=== PATIENT | female | born 2000 | race Caucasian/White ===

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

== ENCOUNTER 2019-04-01 16:14 | Emergency (ER) | payer BC, OTHER ==
[~2019-04-01 16:14] MED LIST changes: -LAMO150T2 PO; +LAMO150T4 PO; +ONDA8TAB9 PO; +RANI300T3 PO
--- NOTE | 2019-04-01 16:41 | PHYS DOC ---
Past History Past Medical History: Anxiety, Bipolar, Constipation, Depression, Gallstones, GERD, Other Past Surgical History: Cholecystectomy, Other Smoking: Quit Less Than 1 Year Alcohol Use: Occasionally Drug Use: None Adult General Chief Complaint Chief Complaint: FINGER INJURY HPI HPI patient is a 18-year-old female who works at [employer], and she states she was a work when she accidentally slammed the door of a display case on her hand, injuring her left third and fourth fingers. She denies any other injuries or painful areas, numbness or weakness. She is having pain with flexion and extension of the digits, range of motion is somewhat limited secondary to the pain. There are no other alleviating or exacerbating factors to her symptoms. She did take ibuprofen prior to arrival. Review of Systems Review of Systems : Denies [] Musculoskeletal: Denies back pain or joint pain, other than as noted in the history of present illness. [] Integument: Denies rash or skin lesions [] Neurologic: Denies focal weakness or sensory changes [] Allergies Allergies Allergies Coded Allergies Type Severity Reaction Last Updated Verified No Known Drug Allergies 04/01/19 No Physical Exam Physical Exam PHYSICAL EXAM: HEENT: Atruamatic NECK: Supple, normal ROM, non-tender. CARDIAC: Regular Rate and Rhythm LUNGS: Clear Bilaterally EXTREMITIES: There is mild soft tissue swelling noted to the left third and fourth digits, mostly over the middle phalanx, there is a tiny subungual hematoma at the base of the nailbed of the left ring finger, less than 10% of the nailbed area, there is no other area of tenderness to palpation, there is no other gross deformity. Range of motion is present but limited secondary to discomfort. EKG EKG [] Radiology/Procedures Radiology/Procedures PROCEDURE: HAND LEFT 3V EXAM: Left hand, 3 views. HISTORY: Trauma. COMPARISON: None. FINDINGS: 3 views of the left hand are obtained. There is no acute fracture, dislocation or subluxation. There is no radiodense foreign body. IMPRESSION: No acute osseous finding. [] Course & Med Decision Making Course & Med Decision Making Patient remains stable. I discussed test results, the need for close follow-up, and return precautions. Dragon Disclaimer Dragon Disclaimer This electronic medical record was generated, in whole or in part, using a voice recognition dictation system. Departure Departure: Impression: Primary Impression: Hand contusion Disposition: HOME, SELF-CARE Condition: STABLE Referrals: ZOFIA COY DO (PCP) Patient Instructions: Hand Contusion, RICE - Routine Care for Injuries ANTONIO SPEARS MD Apr 01, 2019 16:41
--- NOTE | 2019-04-01 17:03 | RAD ---
EXAM: Left hand, 3 views. HISTORY: Trauma. COMPARISON: None. FINDINGS: 3 views of the left hand are obtained. There is no acute fracture, dislocation or subluxation. There is no radiodense foreign body. IMPRESSION: No acute osseous finding. Electronically signed by: Maria Romero MD (04/01/2019 4:59 PM) [facility]
[2019-04-01 17:13] VITALS: BP 110/64
== END 2019-04-01 17:14 | disposition home or self-care (01) ==
LOC: ER 16:14
DX: S60.222A Contusion of left hand, initial encounter (principal); F41.9 Anxiety disorder, unspecified; F31.9 Bipolar disorder, unspecified; K21.9 Gastro-esophageal reflux disease without esophagitis; Z87.891 Personal history of nicotine dependence; W22.8XXA Striking against or struck by other objects, initial encounter; Y93.89 Activity, other specified; Y92.89 Other specified places as the place of occurrence of the external cause; Y99.8 Other external cause status
CPT/HCPCS: 73130; 99284

== ENCOUNTER 2019-06-10 23:56 | Emergency (ER) | payer BC, OTHER ==
--- NOTE | 2019-06-11 00:06 | PHYS DOC ---
Past History Past Medical History: Anxiety, Bipolar, Constipation, Depression, Gallstones, GERD, Other Additional Past Medical Histor: gastroparesis Past Surgical History: Cholecystectomy Smoking: Quit Less Than 1 Year Alcohol Use: Occasionally Drug Use: None Adult General Chief Complaint Chief Complaint: Not in lobby HPI HPI Patient is a 19 year old female who presents with hx and complaints of dizzy and light headed. Pt. left lobby before placement in room or exam. Review of Systems Review of Systems dizzy complaints. Family History Family History not available Current Medications Current Medications See Nursing for home Allergies Allergies Allergies Coded Allergies Type Severity Reaction Last Updated Verified No Known Drug Allergies 04/01/19 No Physical Exam Physical Exam left before room placement EKG EKG [] Radiology/Procedures Radiology/Procedures [] Course & Med Decision Making Course & Med Decision Making Pertinent Labs and Imaging studies reviewed. (See chart for details) []Left before room placement Dragon Disclaimer Dragon Disclaimer This electronic medical record was generated, in whole or in part, using a voice recognition dictation system. Departure Departure: Disposition: 01 HOME/RESIDENCE PRIOR TO ADM Condition: STABLE Referrals: ZOFIA COY DO (PCP) Isidro Disclaimer This chart was dictated in whole or in part using Voice Recognition software in a busy, high-work load, and often noisy Emergency Department environment. It may contain unintended and wholly unrecognized errors or omissions. ALLI BUSH MD Jun 11, 2019 00:06
[2019-06-11] MEDS ORDERED: IV RINGERS SOLUTION,LACTATED 1,000 ML IV SCH (00:15)
== END 2019-06-11 01:10 | disposition home or self-care (01) ==
LOC: ER 23:56
DX: R42 Dizziness and giddiness (principal); Z53.21 Procedure and treatment not carried out due to patient leaving prior to being seen by health care provider

== ENCOUNTER 2020-10-30 11:23 | Emergency (ER) | payer BC, OTHER ==
[~2020-10-30] VITALS: Ht 170.2 cm; Wt 83.7 kg
[~2020-10-30 11:23] MED LIST changes: -ARIP20TA10 PO; +ARIP20TA21 PO
[2020-10-30] MEDS: KETOROLAC 15 MG/ML VIAL. IM ONE (12:49)
--- NOTE | 2020-10-30 13:21 | PHYS DOC ---
Past History Past Medical History: Anxiety, Bipolar, Constipation, Depression, Gallstones, GERD, Other Additional Past Medical Histor: gastroparesis Past Surgical History: Cholecystectomy Additional Past Surgical Histo: DENTAL Smoking: Quit Less Than 1 Year Alcohol Use: None Drug Use: None General Adult EDM: Chief Complaint: HIP PAIN HPI: HPI: Patient is a 20-year-old female who presents with left knee and left hip pain. 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 Patient reports taking ibuprofen and Tylenol for discomfort with no relief. States she has been using ice on her knee and wearing a knee brace. Patient states "I am not able to bear any weight or walk". "I was limping coming into the emergency room". Denies health history. Review of Systems: Review of Systems: Constitutional: Denies fever or chills Eyes: Denies change in visual acuity HENT: Denies nasal congestion or sore throat Respiratory: Denies cough or shortness of breath Cardiovascular: Denies chest pain or edema GI: Denies abdominal pain, nausea, vomiting, bloody stools or diarrhea : Denies dysuria Musculoskeletal: Reports left knee and left hip pain Integument: Denies rash Neurologic: Denies headache, focal weakness or sensory changes Endocrine: Denies polyuria or polydipsia Lymphatic: Denies swollen glands Psychiatric: Denies depression or anxiety Current Medications: Current Meds: Current Medications Medications (Trade) Dose Ordered Sig/[facility] Start Time Stop Time Status Last Admin Dose Admin Ketorolac Tromethamine (Toradol 15mg Vial) 15 mg 1X ONCE 10/30/20 12:45 10/30/20 12:47 DC 10/30/20 12:49 15 MG Allergies: Allergies: Allergies Coded Allergies Type Severity Reaction Last Updated Verified No Known Drug Allergies 04/01/19 No Physical Exam: PE: Constitutional: Well developed, well nourished, no acute distress, non-toxic appearance. [] HENT: Normocephalic, atraumatic, bilateral external ears normal, oropharynx moist, no oral exudates, nose normal. [] Eyes: PERRLA, EOMI, conjunctiva normal, no discharge. [] Neck: Normal range of motion, no tenderness, supple, no stridor. [] Cardiovascular:Heart rate regular rhythm, no murmur [] Lungs & Thorax: Bilateral breath sounds clear to auscultation [] Abdomen: Bowel sounds normal, soft, no tenderness, no masses, no pulsatile masses. [] Skin: Warm, dry, no erythema, no rash. [] Back: No tenderness, no CVA tenderness. [] Extremities: Left leg tenderness, ROM intact, no edema. [] Neurologic: Alert and oriented X 3, normal motor function, normal sensory function, no focal deficits noted. [] Psychologic: Affect normal, judgement normal, mood normal. [] Current Patient Data: Labs: Laboratory Tests Test 10/30/20 13:14 POC Urine HCG, Qualitative hcg negative (Negative) Vital Signs: Vital Signs Date Time Temp Pulse Resp B/P (MAP) Pulse Ox O2 Delivery O2 Flow Rate FiO2 10/30/20 11:41 99.3 61 16 113/71 98 Room Air EKG: EKG: [] Radiology/Procedures: Radiology/Procedures: []EXAM: Left knee, 3 views; pelvis and left hip, 3 views. HISTORY: Pain. COMPARISON: None. FINDINGS: Left knee: 3 views left knee are obtained. There is no fracture, dislocation or subluxation. There is no joint effusion. Pelvis and left hip: A frontal view of the pelvis and 2 views of the left hip are obtained. There is no fracture, dislocation or subluxation. 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 IMPRESSION: 1. No acute osseous finding. 2. 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 Electronically signed by: Maira Romero MD (10/30/2020 1:30 PM) [id number] Heart Score: C/O Chest Pain: No Risk Factors: Risk Factors: DM, Current or recent (<one month) smoker, HTN, HLP, family history of CAD, obesity. Risk Scores: Score 0 - 3: 2.5% MACE over next 6 weeks - Discharge Home Score 4 - 6: 20.3% MACE over next 6 weeks - Admit for Clinical Observation Score 7 - 10: 72.7% MACE over next 6 weeks - Early Invasive Strategies Course & Med Decision Making: Course & Med Decision Making Pertinent Labs and Imaging studies reviewed. (See chart for details) [] 20-year-old female presents with left knee and left hip pain. Patient states when she was transferring a patient yesterday her knee and hip popped out and then popped back in. Patient's been using ice, ibuprofen, Tylenol, knee brace for discomfort. Patient states that she still unable to bear weight. X-ray of knee and hip on the left ordered. Toradol given. X-ray of hip and left knee both negative for acute fracture. Patient given instruction to take Tylenol and ibuprofen at home for discomfort. Continue using ice, knee brace and elevate. You also requested referral for PCP. I am attaching PCP referral information for you to schedule an appointment. Isidro Disclaimer: Isidro Disclaimer: This electronic medical record was generated, in whole or in part, using a voice recognition dictation system. Departure Departure: Impression: Primary Impression: Hip pain Additional Impression: Knee pain Qualified Codes: M25.562 - Pain in left knee Disposition: HOME / SELF CARE / HOMELESS Condition: STABLE Referrals: ZOFIA COY DO (PCP) Patient Instructions: Hip Pain, Knee Pain, [id number] Additional Instructions: You are seen in the emergency room for left knee and hip pain. Your x-ray was negative for acute fracture. Continue taking ibuprofen and Tylenol at home for discomfort. Rest, use ice, wear your knee brace, and elevate leg to help with swelling and pain. Please follow-up with PCP. Return to emergency room if you have worsening symptoms or concerns. EMERGENCY DEPARTMENT GENERAL DISCHARGE INSTRUCTIONS Thank you for coming to [facility] (ED) today and trusting us with you care. We trust that you had a positivie experience in our Emergency Department. If you wish to speak to the department management, you may call the director at [phone]. YOUR FOLLOW UP INSTRUCTIONS ARE FOLLOWS: 1. Do you have a private Doctor? If you do not have a private doctor, please ask for a resource list of physicians or clinics that may be able to assist you with follow up care. 2. The Emergency Physician has interpreted your x-rays. The X-Ray specialist will also review them. If there is a change in the findings, you will be notified in 48 hours when at all possible. 3. A lab test or culture has been done, your results will be reviewed and you will be notified if you need a change in treatment. ADDITIONAL INSTRUCTIONS AND INFORMATION: 1. Your care today has been supervised by a physician who is specially trained in emergency care. Many problems require more than one evaluation for a complete diagnosis and treatment. We recommend that you schedule your follow up appointment as recommended to ensure complete treatment of you illness or injury. If you are unable to obtain follow up care and continue to have a problem, or if your condition worsens, we recommend that you return to the ED. 2. We are not able to safely determine your condition over the phone nor are we able to give sound medical advice over the phone. For these safety reasons, if you call for medical advice we will ask you to come to the ED for further evaluation. 3. If you have any questions regarding these discharge instructions please call the ED at [phone]. SAFETY INFORMATION: In the interest of safety, wellness, and injury prevention; we encourage you to wear your sealbelt, if you smoke; quite smoking, and we encourage family to use a protective helmet for bicycling and other sporting events that present an increased risk for head injury. IF YOUR SYMPTOMS WORSEN OR NEW SYMPTOMS DEVELOP, OR YOU HAVE CONCERNS ABOUT YOUR CONDITION; OR IF YOUR CONDITION WORSENS WHILE YOU ARE WAITING FOR YOUR FOLLOW UP APPOINTMENT; EITHER CONTACT YOUR PRIMARY CARE DOCTOR, THE PHYSICIAN WHOSE NAME AND NUMBER YOU WERE GIVEN, OR RETURN TO THE ED IMMEDIATELY. SARAH BOO APRN Oct 30, 2020 13:21
--- NOTE | 2020-10-30 13:32 | RAD ---
EXAM: Left knee, 3 views; pelvis and left hip, 3 views. HISTORY: Pain. COMPARISON: None. FINDINGS: Left knee: 3 views left knee are obtained. There is no fracture, dislocation or subluxation. There is no joint effusion. Pelvis and left hip: A frontal view of the pelvis and 2 views of the left hip are obtained. There is no fracture, dislocation or subluxation. 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 IMPRESSION: 1. No acute osseous finding. 2. 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 Electronically signed by: Maira Romero MD (10/30/2020 1:30 PM) [id number]
== END 2020-10-30 13:52 | disposition home or self-care (01) ==
LOC: ER 11:23
DX: M25.552 Pain in left hip (principal); M25.562 Pain in left knee; K21.9 Gastro-esophageal reflux disease without esophagitis; Z90.49 Acquired absence of other specified parts of digestive tract; Z87.891 Personal history of nicotine dependence
CPT/HCPCS: 73502; 73562; 81025; 96372; 99284; J1885